=== PATIENT | female | born 1995 | race Caucasian/White ===

== ENCOUNTER 2018-05-04 16:31 | Emergency (ER) | payer OTHER ==
[2018-05-04] MEDS ORDERED: NS(*) 0.9% 1000 ML BAG 1,000 ML IV ONE (16:39)
[2018-05-04] MEDS ORDERED: ONDANSETRON 4 MG/2 ML VIAL IVP ONE (16:40)
--- NOTE | 2018-05-04 16:41 | ER Report ---
History and Physical Time Seen By MD: 16:40 (BHARGAV GAITAN MD) HPI/ROS CHIEF COMPLAINT: Dental pain HISTORY OF PRESENT ILLNESS: 23-year-old morbidly obese female comes in with episodic right upper quadrant epigastric discomfort going on the last 2 weeks. Comes and goes no true loosening relieving factor sometimes with food sometimes with motion feels worse or sometimes it feels better. Patient denies any vomiting but states she was nauseous couple days ago has no diarrhea denies fever chills denies any surgical history no additional complaints noted. REVIEW OF SYSTEMS: Respiratory: No cough, no dyspnea. Cardiovascular: No chest pain, no palpitations. Gastrointestinal: No vomiting right upper quadrant pain Musculoskeletal: No back pain. Remainder of the 14 system rev: Yes (BHARGAV GAITAN MD) Allergies: Coded Allergies: sulfamethoxazole (Verified Allergy, Mild, 05/04/18) trimethoprim (Verified Allergy, Mild, 05/04/18) Home Meds Active Scripts Ondansetron 4 Mg Odt (ONDANSETRON 4 MG ODT) 4 Mg Tab.rapdis, 4 MG PO Q6H PRN for NAUSEA/VOMITING, #20 TAB 0 Refills Prov:ALAN RAY MD 05/04/18 Hydrocodone Bit/Acetaminophen (HYDROCODON-ACETAMINOPHEN 5-325) 1 Each Tablet, 1 EACH PO Q4H PRN for PAIN, #8 TAB 0 Refills Prov:ALAN RAY MD 05/04/18 Reported Medications Etonogestrel (NEXPLANON) 68 Mg Implant, 68 MG SQ DIRECTED, IMPLANT 05/04/18 Reviewed Nurses Notes: Yes Old Medical Records Reviewed: Yes (BHARGAV GAITAN MD) Constitutional Vital Sign - Last 24 Hours 05/04/18 05/04/18 05/04/18 05/04/18 16:36 16:37 16:51 17:11 Temp 97.9 Pulse 52 52 51 Resp 16 B/P (MAP) 129/88 129/88 (102) Pulse Ox 94 93 92 O2 Delivery Room Air 05/04/18 05/04/18 05/04/18 05/04/18 17:31 17:51 17:56 18:16 Pulse 49 52 47 58 Pulse Ox 91 91 92 86 05/04/18 05/04/18 05/04/18 05/04/18 18:21 18:26 18:31 18:36 Pulse 50 47 61 52 Pulse Ox 93 87 87 91 05/04/18 05/04/18 05/04/18 18:41 18:51 19:03 Pulse 50 61 B/P (MAP) 111/99 (103) Pulse Ox 87 85 ([facility]) Physical Exam General Appearance: The patient is alert, has no immediate need for airway protection and no current signs of toxicity. [ ] Eyes: Pupils equal and round no injection. Respiratory: Chest is non tender, lungs are clear to auscultation. Cardiac: regular rate and rhythm [ ] Gastrointestinal: Abdominal examination shows mild to moderate tenderness in the lower quadrant and positive McBurney's or rebound or guarding no masses normal bowel sounds Musculoskeletal: Neck: Neck is supple and non tender. Extremities have full range of motion and are non tender. Skin: No rashes or lesions. [ ] DIFFERENTIAL DIAGNOSIS: After history and physical exam differential diagnosis was considered for gallbladder disorder cholelithiasis choledocholithiasis cholangitis ascending cholangitis colitis (BHARGAV GAITAN MD) Medical Decision Making Data Points Result Diagram: 05/04/18 1657 05/04/18 1657 Laboratory Hematology Test 05/04/18 16:57 05/04/18 17:18 Red Blood Count 5.10 M/uL (4.17-5.56) Mean Corpuscular Volume 89.4 fL (80.0-96.0) Mean Corpuscular Hemoglobin 30.1 pg (26.0-33.0) Mean Corpuscular Hemoglobin Concent 33.7 g/dL (32.0-36.0) Red Cell Distribution Width 12.8 % (11.5-14.5) Mean Platelet Volume 7.3 fL (7.2-11.1) Neutrophils (%) (Auto) 61.7 % (39.4-72.5) Lymphocytes (%) (Auto) 29.1 % (17.6-49.6) Monocytes (%) (Auto) 7.4 % (4.1-12.4) Eosinophils (%) (Auto) 1.4 % (0.4-6.7) Basophils (%) (Auto) 0.4 % (0.3-1.4) Nucleated RBC Relative Count (auto) 0.0 /100WBC Neutrophils # (Auto) 5.5 K/uL (2.0-7.4) Lymphocytes # (Auto) 2.6 K/uL (1.3-3.6) Monocytes # (Auto) 0.7 K/uL (0.3-1.0) Eosinophils # (Auto) 0.1 K/uL (0.0-0.5) Basophils # (Auto) 0.0 K/uL (0.0-0.1) Nucleated RBC Absolute Count (auto) 0.00 K/uL Prothrombin Time 12.6 seconds (12.0-14.4) Prothromb Time International Ratio 0.94 Activated Partial Thromboplast Time 27 seconds (23-35) Sodium Level 140 mmol/L (137-145) Potassium Level 3.8 mmol/L (3.5-5.0) Chloride Level 102 mmol/L (98-107) Carbon Dioxide Level 27 mmol/L (22-31) Blood Urea Nitrogen 8 mg/dl (7-18) Creatinine 0.90 mg/dl (0.52-1.04) Glomerular Filtration Rate Calc > 60.0 Random Glucose 85 mg/dl (75-110) Calcium Level 9.6 mg/dl (8.4-10.2) Total Bilirubin 0.3 mg/dl (0.2-1.3) Aspartate Amino Transf (AST/SGOT) 23 U/L (0-35) Alanine Aminotransferase (ALT/SGPT) 28 U/L (0-56) Alkaline Phosphatase 82 U/L (0-126) Total Protein 8.1 g/dl (6.3-8.2) Albumin 4.7 g/dl (3.5-5.0) Lipase 40 U/L (23-300) Serum Alcohol < 10 mg/dl Urine Color Colorless Urine Clarity Clear Urine pH 6.5 pH (4.8-9.5) Urine Specific [place] 1.005 Urine Protein Negative mg/dL (NEGATIVE) Urine Glucose (UA) Negative mg/dL (NEGATIVE) Urine Ketones Negative mg/dL (NEGATIVE) Urine Blood Negative (NEGATIVE) Urine Nitrite Negative (NEGATIVE) Urine Bilirubin Negative (NEGATIVE) Urine Urobilinogen Negative mg/dL (0.2-1.9) Urine Leukocyte Esterase Negative (NEGATIVE) Urine RBC <1 /HPF (0-2/HPF) Urine WBC <1 /HPF (0-5/HPF) Urine Squamous Epithelial Cells None /LPF (</=FEW) Urine Bacteria Negative /HPF (NONE-FEW) Urine Mucus None /HPF (NONE-FEW) Urine HCG, Qualitative Negative (NEGATIVE) Chemistry Test 05/04/18 16:57 05/04/18 17:18 White Blood Count 9.0 k/uL (4.5-11.0) Red Blood Count 5.10 M/uL (4.17-5.56) Hemoglobin 15.4 g/dL (12.0-16.0) Hematocrit 45.6 % (34.0-47.0) Mean Corpuscular Volume 89.4 fL (80.0-96.0) Mean Corpuscular Hemoglobin 30.1 pg (26.0-33.0) Mean Corpuscular Hemoglobin Concent 33.7 g/dL (32.0-36.0) Red Cell Distribution Width 12.8 % (11.5-14.5) Platelet Count 418 K/uL (150-450) Mean Platelet Volume 7.3 fL (7.2-11.1) Neutrophils (%) (Auto) 61.7 % (39.4-72.5) Lymphocytes (%) (Auto) 29.1 % (17.6-49.6) Monocytes (%) (Auto) 7.4 % (4.1-12.4) Eosinophils (%) (Auto) 1.4 % (0.4-6.7) Basophils (%) (Auto) 0.4 % (0.3-1.4) Nucleated RBC Relative Count (auto) 0.0 /100WBC Neutrophils # (Auto) 5.5 K/uL (2.0-7.4) Lymphocytes # (Auto) 2.6 K/uL (1.3-3.6) Monocytes # (Auto) 0.7 K/uL (0.3-1.0) Eosinophils # (Auto) 0.1 K/uL (0.0-0.5) Basophils # (Auto) 0.0 K/uL (0.0-0.1) Nucleated RBC Absolute Count (auto) 0.00 K/uL Prothrombin Time 12.6 seconds (12.0-14.4) Prothromb Time International Ratio 0.94 Activated Partial Thromboplast Time 27 seconds (23-35) Glomerular Filtration Rate Calc > 60.0 Calcium Level 9.6 mg/dl (8.4-10.2) Total Bilirubin 0.3 mg/dl (0.2-1.3) Aspartate Amino Transf (AST/SGOT) 23 U/L (0-35) Alanine Aminotransferase (ALT/SGPT) 28 U/L (0-56) Alkaline Phosphatase 82 U/L (0-126) Total Protein 8.1 g/dl (6.3-8.2) Albumin 4.7 g/dl (3.5-5.0) Lipase 40 U/L (23-300) Serum Alcohol < 10 mg/dl Urine Color Colorless Urine Clarity Clear Urine pH 6.5 pH (4.8-9.5) Urine Specific [place] 1.005 Urine Protein Negative mg/dL (NEGATIVE) Urine Glucose (UA) Negative mg/dL (NEGATIVE) Urine Ketones Negative mg/dL (NEGATIVE) Urine Blood Negative (NEGATIVE) Urine Nitrite Negative (NEGATIVE) Urine Bilirubin Negative (NEGATIVE) Urine Urobilinogen Negative mg/dL (0.2-1.9) Urine Leukocyte Esterase Negative (NEGATIVE) Urine RBC <1 /HPF (0-2/HPF) Urine WBC <1 /HPF (0-5/HPF) Urine Squamous Epithelial Cells None /LPF (</=FEW) Urine Bacteria Negative /HPF (NONE-FEW) Urine Mucus None /HPF (NONE-FEW) Urine HCG, Qualitative Negative (NEGATIVE) Coagulation Test 05/04/18 16:57 Prothrombin Time 12.6 seconds Prothromb Time International Ratio 0.94 Activated Partial Thromboplast Time 27 seconds Toxicology Test 05/04/18 16:57 Serum Alcohol < 10 mg/dl Urinalysis Test 05/04/18 17:18 Urine Color Colorless Urine Clarity Clear Urine pH 6.5 pH (4.8-9.5) Urine Specific [place] 1.005 Urine Protein Negative mg/dL (NEGATIVE) Urine Glucose (UA) Negative mg/dL (NEGATIVE) Urine Ketones Negative mg/dL (NEGATIVE) Urine Blood Negative (NEGATIVE) Urine Nitrite Negative (NEGATIVE) Urine Bilirubin Negative (NEGATIVE) Urine Urobilinogen Negative mg/dL (0.2-1.9) Urine Leukocyte Esterase Negative (NEGATIVE) Urine RBC <1 /HPF (0-2/HPF) Urine WBC <1 /HPF (0-5/HPF) Urine Squamous Epithelial Cells None /LPF (</=FEW) Urine Bacteria Negative /HPF (NONE-FEW) Urine Mucus None /HPF (NONE-FEW) Urine HCG, Qualitative Negative (NEGATIVE) (ALAN RAY MD) EKG/Imaging Imaging Focused right upper quadrant ultrasound HISTORY: Upper abdominal pain. Nausea and bloating. COMPARISON: None available. Findings: Standard right upper quadrant abdominal ultrasound is performed. Pancreas: Obscured by bowel gas. Liver: Negative. Gallbladder and biliary system: No gallbladder stone or sludge. No wall thickening, pericholecystic fluid, or sonographic Spring's. The common bile duct is not dilated. Aorta and IVC: The visualized aorta and IVC are patent. Kidneys: The right kidney measures 10.4 x 4.8 x 4.5 cm. Normal echogenicity. No hydronephrosis. Ascites: None. IMPRESSION: The pancreas is obscured by bowel gas. Otherwise unremarkable right upper quadrant ultrasound. Report Dictated By: Robert Blake MD at 05/04/2018 5:[address] abdomen and pelvis with IV contrast Indication: Abdominal pain for 3 days. Comparison: Right upper quadrant ultrasound done earlier in the day.. Technique: Axial CT images were obtained through the abdomen and pelvis during injection of nonionic iodinated intravenous contrast. Reformatted coronal and sagittal images were also obtained. One of the following dose optimization techniques was utilized in the performance of this exam: Automated exposure control; adjustment of the mA and/or kV according to the patient's size; or use of an iterative reconstruction technique. Specific details can be referenced in the facility's radiology CT exam operational policy. Contrast: 75 ml of Isovue-370 IV contrast. Findings: Lower lung elias: Limited views lower lung field are unremarkable. Liver: No focal parenchymal abnormality of the liver. Biliary: Gallbladder appears unremarkable as well as the intra and extra hepatic biliary system. Pancreas: Normal appearance. Spleen: Normal appearance. Adrenal glands: Unremarkable. Kidneys / retroperitoneum: No evidence of nephrolithiasis or hydronephrosis. No focal abnormality. Bowel / peritoneum / mesenteries: Colon shows no focal normality. The appendix is normal. Sutures are seen in the small bowel in the right lower abdomen without focal abnormality or obstruction. This small bowel shows no focal normality or obstruction. The stomach is mainly decompressed and grossly normal. No free air, free fluid, fluid collections or areas of inflammation. Tiny umbilical hernia containing fat. Umbilical piercing. Lymph node assessment: No pathologic adenopathy identified. Pelvic structures: Left ovary does show a 3 cm cyst. The pelvic structures otherwise are unremarkable. Small nabothian cyst seen in the cervix. Vessels: No significant atherosclerotic calcifications seen throughout a nonaneurysmal abdominal aorta and branches. Musculoskeletal / Body wall: No acute or aggressive osseous abnormality. Mild degenerative changes spine. IMPRESSION: 1. No acute intra-abdominal abnormality 2.3 cm left ovarian cyst. 3. Postsurgical change to the small bowel in the right lower abdomen. No focal abnormality or obstruction present on this exam. Report Dictated By: Carter Mccormack at 05/04/2018 6:24 PM (ALAN RAY MD) ED Course/Re-evaluation ED Course I discussed this patient with Dr. Gaitan at shift change and assumed care. Imaging negative for acute process. 3cm left ovarian cyst incidentally noted. Discussed findings. Recommended follow-up with gastroenterology for further evaluation. Home with some Lortab and Zofran as needed for symptom control. Decision to Disposition Date: May 04, 2018 Decision to Disposition Time: 18:53 (ALAN RAY MD) Depart Departure Latest Vital Signs Vital Signs Date Time Temp Pulse Resp B/P (MAP) Pulse Ox O2 Delivery O2 Flow Rate FiO2 05/04/18 19:03 111/99 (103) 05/04/18 18:51 61 85 05/04/18 16:36 97.9 16 Room Air (ALAN RAY MD) Impression: Primary Impression: Abdominal pain Condition: Improved Disposition: HOME OR SELF-CARE New Scripts Ondansetron 4 Mg Odt (ONDANSETRON 4 MG ODT) 4 Mg Tab.rapdis 4 MG PO Q6H PRN for NAUSEA/VOMITING, #20 TAB 0 Refills Prov: ALAN RAY MD 05/04/18 Hydrocodone Bit/Acetaminophen (HYDROCODON-ACETAMINOPHEN 5-325) 1 Each Tablet 1 EACH PO Q4H PRN for PAIN, #8 TAB 0 Refills Prov: ALAN RAY MD 05/04/18 Patient Instructions: Acute Abdominal Pain (ED) Additional Instructions: The workup here in the ER tonight was negative for any acute problem. This does not mean that everything is fine, but that there is no serious or emergent condition present. Further evaluation needs to be done if the pain does not improve. The next step would be an evaluation by a gastrointestinal specialist, possibly needing upper endoscopy or colonoscopy. In the meantime, we will provide medication for pain and nausea as needed. Lortab 5/325, one every 4 hours as needed for severe pain. Otherwise, recommend Tylenol or Ibuprofen for pain. Zofran 4mg, one every 6 hours as needed for nausea or vomiting. Problem Qualifiers Primary Impression: Abdominal pain Abdominal location: generalized Qualified Codes: R10.84 - Generalized abdominal pain BHARGAV GAITAN MD May 04, 2018 16:41 ALAN RAY MD May 04, 2018 18:07
[2018-05-04] MEDS ORDERED: ETON68IM SQ (16:47)
[2018-05-04 17:12] LABS: PLATELET COUNT, AUTOMATED 418 K/uL (150-450)
[2018-05-04 17:20] LABS: INR 0.94
--- NOTE | 2018-05-04 17:43 | RADIOLOGY IMAGING REPORT ---
FACILITY: [facility] - [place] PATIENT NAME: Kate Nunez : 1995 MR: [id number] V: [id number] EXAM DATE: ORDERING PHYSICIAN: BHARGAV GAITAN TECHNOLOGIST: Location: [facility] - [place] Patient: Kate Nunez : 1995 Visit/Account:[id number] Date of Sevice: 05/04/2018 Focused right upper quadrant ultrasound HISTORY: Upper abdominal pain. Nausea and bloating. COMPARISON: None available. Findings: Standard right upper quadrant abdominal ultrasound is performed. Pancreas: Obscured by bowel gas. Liver: Negative. Gallbladder and biliary system: No gallbladder stone or sludge. No wall thickening, pericholecystic f luid, or sonographic Spring's. The common bile duct is not dilated. Aorta and IVC: The visualized aorta and IVC are patent. Kidneys: The right kidney measures 10.4 x 4.8 x 4.5 cm. Normal echogenicity. No hydronephrosis. Ascites: None. IMPRESSION: The pancreas is obscured by bowel gas. Otherwise unremarkable right upper quadrant ultra sound. Report Dictated By: Robert Blake MD at 05/04/2018 5:35 PM Report E-Signed By: Robert Blake MD at 05/04/2018 5:37 PM WSN:[id number]
[2018-05-04] MEDS ORDERED: IOPAMIDOL 76% 100 ML INFUS BTL 100 ML ONE (18:01)
--- NOTE | 2018-05-04 18:37 | RADIOLOGY IMAGING REPORT ---
FACILITY: [facility] - [place] PATIENT NAME: Kate Nunez : 1995 MR: [id number] V: [id number] EXAM DATE: ORDERING PHYSICIAN: BHARGAV GAITAN TECHNOLOGIST: Location: [facility] - [place] Patient: Kate Nunez : 1995 Visit/Account:[id number] Date of Sevice: 05/04/2018 CT abdomen and pelvis with IV contrast Indication: Abdominal pain for 3 days. Comparison: Right upper quadrant ultrasound done earlier in the day.. Technique: Axial CT images were obtained through the abdomen and pelvis during injection of nonioni c iodinated intravenous contrast. Reformatted coronal and sagittal images were also obtained. One of the following dose optimization techniques was utilized in the performance of this exam: Autom ated exposure control; adjustment of the mA and/or kV according to the patient's size; or use of an i terative reconstruction technique. Specific details can be referenced in the facility's radiology C T exam operational policy. Contrast: 75 ml of Isovue-370 IV contrast. Findings: Lower lung elias: Limited views lower lung field are unremarkable. Liver: No focal parenchymal abnormality of the liver. Biliary: Gallbladder appears unremarkable as well as the intra and extra hepatic biliary system. Pancreas: Normal appearance. Spleen: Normal appearance. Adrenal glands: Unremarkable. Kidneys / retroperitoneum: No evidence of nephrolithiasis or hydronephrosis. No focal abnormality. Bowel / peritoneum / mesenteries: Colon shows no focal normality. The appendix is normal. Sutures are seen in the small bowel in the right lower abdomen without focal abnormality or obstruction. This sm all bowel shows no focal normality or obstruction. The stomach is mainly decompressed and grossly nor mal. No free air, free fluid, fluid collections or areas of inflammation. Tiny umbilical hernia containing fat. Umbilical piercing. Lymph node assessment: No pathologic adenopathy identified. Pelvic structures: Left ovary does show a 3 cm cyst. The pelvic structures otherwise are unremarka ble. Small nabothian cyst seen in the cervix. Vessels: No significant atherosclerotic calcifications seen throughout a nonaneurysmal abdominal aort a and branches. Musculoskeletal / Body wall: No acute or aggressive osseous abnormality. Mild degenerative changes sp ine. IMPRESSION: 1. No acute intra-abdominal abnormality 2.3 cm left ovarian cyst. 3. Postsurgical change to the small bowel in the right lower abdomen. No focal abnormality or obstruc tion present on this exam. Report Dictated By: Carter Mccormack at 05/04/2018 6:24 PM Report E-Signed By: Carter Mccormack at 05/04/2018 6:33 PM WSN:[id number]
[2018-05-04] MEDS ORDERED: LOR5/325 PO (18:56)
[2018-05-04] MEDS ORDERED: ONDA4TAB9 PO (18:56)
[2018-05-04 19:03] VITALS: BP 111/99
== END 2018-05-04 19:07 | disposition home or self-care (01) ==
LOC: ER 16:51
DX: R10.84 Generalized abdominal pain (principal)
CPT/HCPCS: 74177; 76705; 80320; 81001; 81025; 83690; 85025; 85610; 85730; 96361; 96374; 99284; J2405; J7030; Q9967; 82040; 82247; 82310; 82374; 82435; 82565; 82947; 84075; 84132; 84155; 84295; 84450; 84460; 84520